=== PATIENT | female | born 1980 | race Hispanic/Latino ===

== ENCOUNTER 2022-03-21 00:55 | Emergency (ER) | payer OTHER ==
[~2022-03-21] VITALS: Ht 152.4 cm; Wt 84.4 kg
[2022-03-21 01:30] LABS: BASOPHILS % (AUTO) 1.1 % (0.0-5.0); EOSINOPHILS % (AUTO) 1.1 % (0.0-8.0); HEMATOCRIT 43.3 % (36-48); LYMPHOCYTES % (AUTO) 37.4 % (21.0-51.0); MEAN CORPUSCULAR HEMOGLOBIN 30.7 pg (27.0-33.0); MEAN CORPUSCULAR HGB CONC 33.5 g/dL (32.0-36.0); MEAN CORPUSCULAR VOLUME 91.7 fL (79-99); MONOCYTES % (AUTO) 7.8 % (3.0-13.0); NEUTROPHILS % (AUTO) 52.5 % (40.0-77.0); PLATELET COUNT (AUTO) 316 K/uL (130-400); RED BLOOD CELL COUNT(AUTO) 4.72 MIL/uL (4.00-5.50); RED CELL DISTRIBUTION WIDTH 13.2 % (11.0-15.5); WHITE BLOOD COUNT (AUTO) 9.9 K/uL (4.8-10.8)
[2022-03-21] MEDS ORDERED: LACTATED RINGERS 1000ML 1,000 ML IV ONE (01:30)
[2022-03-21] MEDS ORDERED: KETOROLAC 30MG VIAL (30MG/ML) IVP ONE (01:30)
[2022-03-21] MEDS ORDERED: ONDANSETRON 4MG INJ IVP ONE (01:30)
[2022-03-21 01:40] LABS: CREATININE 0.8 mg/dL (0.5-1.5); POTASSIUM 3.4 mmol/L (3.5-5.1)
[2022-03-21 01:42] LABS: APPEARANCE,URINE SL CLOUDY (CLEAR); BILIRUBIN,URINE NEGATIVE (NEGATIVE); COLOR,URINE YELLOW (YELLOW); GLUCOSE, URINE (UA) NEGATIVE (NEGATIVE); KETONES,URINE >=80 mg/dL (NEGATIVE); LEUKOCYTE ESTERASE ,URINE NEGATIVE (NEGATIVE); NITRATE,URINE NEGATIVE (NEGATIVE); OCCULT BLOOD,URINE LARGE (NEGATIVE); PROTEIN,URINE TRACE mg/dL (NEGATIVE); UROBILINOGEN,URINE 0.2 mg/dL (0.2-1.0)
[2022-03-21 01:45] LABS: ALBUMIN 4.4 g/dL (3.5-5.0); TOTAL PROTEIN, SERUM 8.4 g/dL (6.0-8.3)
[2022-03-21 01:54] LABS: BACTERIA,URINE Few /HPF (None Seen); MUCUS,URINE Rare LPF (None Seen); SQUAMOUS EPITHELIAL CELL,UR Few /HPF (0-2)
[2022-03-21] MEDS ORDERED: TAMSULOSIN HCL 0.4 MG CAP.ER.24H PO SCH (02:30)
[2022-03-21 02:31] VITALS: BP 109/75
[2022-03-21] MEDS ORDERED: TAMS-1 PO (02:43)
[2022-03-21] MEDS ORDERED: IBUP-2071 PO (02:43)
[2022-03-21] MEDS ORDERED: CEPH500T PO (02:43)
[2022-03-21] MEDS ORDERED: OXYC-38 PO (02:43)
[2022-03-21] MEDS ORDERED: OXYCODONE/ACETAMIN 5/325MG TAB PO ONE (03:00)
== END 2022-03-21 02:59 | disposition home or self-care (01) ==
LOC: EDH 00:55
DX: N20.1 Calculus of ureter (principal); K21.9 Gastro-esophageal reflux disease without esophagitis; Z88.0 Allergy status to penicillin; Z79.1 Long term (current) use of non-steroidal anti-inflammatories (NSAID); Z90.49 Acquired absence of other specified parts of digestive tract
CPT/HCPCS: 99284; 74176; 96374; 96361; 96375; 80053; 83690; 85025; 81001; 81025; 36415; J7120; J2405; J1885